=== PATIENT | female | born 1945 | race Caucasian/White ===

== ENCOUNTER → 2024-08-15 | Outpatient (CLI) | payer MEDICARE | LOC: LAB SHORT 10:21 → LAB 10:21 | DX: N39.0 Urinary tract infection, site not specified (principal); R07.89 Other chest pain | CPT/HCPCS: 84484; 87077; 87086; 87186 ==

== ENCOUNTER → 2024-11-25 | Outpatient (CLI) | payer OTHER ==
[2024-11-25 20:11] LABS: Creatinine, Urine Random 57.7 mg/dL (27.00-270.00); Microalb/Creat Ratio UR, Rand 13.449 mg/g (0.000-30.000); Microalbumin, Random Urine 7.76 mg/L (0.000-20.000)
== END | disposition home or self-care (01) ==
LOC: LAB 18:26 → LAB SHORT 18:26
PROVIDERS: Physician Assistant
DX: R73.03 Prediabetes (principal)
CPT/HCPCS: 82043; 82570

== ENCOUNTER → 2025-02-14 | Outpatient (CLI) | payer OTHER | END | disposition home or self-care (01) | LOC: LAB SHORT 11:38 → LAB 11:38 | DX: N39.0 Urinary tract infection, site not specified (principal) | CPT/HCPCS: 87077; 87086; 87186 ==

== ENCOUNTER → 2025-05-25 | Outpatient (CLI) | payer OTHER | LOC: LAB 15:11 → LAB SHORT 15:11 | DX: N30.00 Acute cystitis without hematuria (principal) | CPT/HCPCS: 87077; 87086; 87186 ==